=== PATIENT | female | born 1990 | race American Indian/Alaskan Native ===

== ENCOUNTER 2021-02-17 08:31 | Emergency (ER) | payer OTHER ==
[2021-02-17 08:52] VITALS: BP 131/79
--- NOTE | 2021-02-17 09:19 | Emergency Department Report ---
Suture/Staple Removal - HPI Chief Complaint: Laceration/Recheck/Suture Stated Complaint: SUTURE REMOVAL Time Seen by Provider: 02/17/21 09:18 When Sutures or N[place] Placed: 11-14 Days Ago Wound Location: r thigh ED Review of Systems ROS: Stated complaint: SUTURE REMOVAL Other details as noted in HPI Comment: All other systems reviewed and negative ED Past Medical Hx - Past Medical History Previous Medical History?: No - Surgical History Past Surgical History?: Yes Additional Surgical History: fracture hip - Family History Family history: no significant - Social History Smoking Status: Never Smoker Suture Removal Exam - Exam General: Vital signs noted. No distress. Alert and acting appropriately. Wound: No Pathologic Erythema, No Tenderness, No Drainage, No Pus, No Wound Dehiscence Other Systems: All other systems reviewed and are unremarkable. ED Course Vital Signs 02/17/21 08:51 Temperature 98.9 F Pulse Rate 87 Respiratory 18 Rate Blood Pressure 131/79 O2 Sat by Pulse 98 Oximetry ED Recheck MDM - Core Measures Measure Exclusions: not indicated - Differential Diagnosis Suture/Staple Removal - Medical Decision Making 4 surgically placed horizontal matress sutures removed without difficulty pt tolerated well dc home with wound care instructions and follow up with her surgeon/PCP. She verbalizes understanding. Vital Signs (72 hours) 02/17/21 08:51 Temperature 98.9 F Pulse Rate 87 Respiratory 18 Rate Blood Pressure 131/79 O2 Sat by Pulse 98 Oximetry Critical care attestation.: If time is entered above; I have spent that time in minutes in the direct care of this critically ill patient, excluding procedure time. ED Disposition Clinical Impression: Visit for suture removal Disposition: 01 HOME / SELF CARE / HOMELESS Is pt being admited?: No Does the pt Need Aspirin: No Condition: Stable Additional Instructions: follow up with your surgeon/pcp local referral below Referrals: JOSIE SIN MD [Staff Physician] - 3-5 Days Time of Disposition: 09:24
== END 2021-02-17 09:53 | disposition home or self-care (01) ==
LOC: ED 08:31
DX: S71.111D Laceration without foreign body, right thigh, subsequent encounter (principal); X58.XXXD Exposure to other specified factors, subsequent encounter